=== PATIENT | male | born 1955 | race Caucasian/White ===

== ENCOUNTER 2017-04-11 17:27 | Emergency (ER) | payer BC ==
[~2017-04-11] VITALS: Ht 180.3 cm; Wt 101.4 kg
[2017-04-11 17:43] VITALS: TEMP 98.7
[2017-04-11 18:32] LABS: PH 5 (5-8); SQUAMOUS EPITHELIAL None Seen /hpf; URINE APPEARANCE Clear; URINE BACTERIA None Seen /hpf; URINE BILIRUBIN Negative (NEGATIVE); URINE BLOOD 1+ (NEGATIVE); URINE COLOR Yellow; URINE GLUCOSE Negative (NEGATIVE); URINE KETONE Trace (NEGATIVE); URINE RBC 0-2 /hpf; URINE UROBILINOGEN Negative (NEGATIVE); URINE WBC 0-2 /hpf
[2017-04-11 20:40] VITALS: BP 135/70; PULSE 91
[2017-04-11] MEDS ORDERED: SYNTHROID0.05 MG/TA PO (20:40)
== END 2017-04-11 20:35 | disposition home or self-care (01) ==
LOC: COL.ER 17:27
PROVIDERS: Family Medicine
DX: K59.00 Constipation, unspecified (principal); K64.9 Unspecified hemorrhoids

== ENCOUNTER 2019-11-25 09:08 | Inpatient (IN) | payer BC ==
[2019-11-25] VITALS (429 sets, daily range): BP systolic 109–142; BP diastolic 77–97; PULSE 71–84; TEMP 97.6–98.2; O2SAT 91–99
[~2019-11-25] VITALS: Ht 180.3 cm; Wt 97.5 kg
[~2019-11-25 09:08] MED LIST: SYNTHROID0.05 MG/TA PO
[2019-11-25] MEDS ORDERED: NEXIUM 24HR20 M1 PO (09:13)
[2019-11-25 09:34] LABS: BASO # 0.1 (0.0-0.2); EOS # 0.2 (0.0-0.7); EOS % 2.9 % (0-4.0); GRAN # 3.2 (1.4-6.5); GRAN % 61.4 % (42.2-75.2); HEMATOCRIT 48.2 % (42.0-52.0); INR 1.2 (0.8-3.0); LYMPH # 1.5 (1.2-3.4); LYMPH % 28.4 % (20.0-51.0); MEAN CELL VOLUME 87 fl (80.0-100.0); MEAN CORPUSCULAR HEMOGLOBIN 29 pg (27.0-31.0); MEAN CORPUSCULAR HGB CONC 33 g/dl (33.0-37.0); MEAN PLATELET VOLUME 9.4 fl (7.4-10.4); MONO # 0.3 (0.1-0.6); MONO % 5.9 % (1.7-9.3); PLATELET COUNT 169 K/mm3 (130-400); PROTHROMBIN TIME 13.1 SECONDS (9.7-12.8); RED BLOOD COUNT 5.53 M/mm3 (4.20-5.60)
[2019-11-25 09:36] LABS: ALBUMIN 4.1 gm/dL (3.5-5.0); BILIRUBIN,TOTAL 1.6 mg/dL (0.0-1.0); CALCIUM 9.2 mg/dL (8.4-10.2); CREATININE, serum 1.08 (0.66-1.25); PARTIAL THROMBOPLASTIN TIME 30.5 SECONDS (26.0-37.0); POTASSIUM 4.5 mmol/L (3.4-5.0); TOTAL PROTEIN 7.4 gm/dL (6.4-8.2)
[2019-11-25 09:52] LABS: TROPONIN-I 0.069 ng/mL (0.000-0.035)
--- NOTE | 2019-11-25 11:39 | NUR ---
SEE MERGE DOCUMENTATION FOR MEDICATION ADMINISTRATION TIMES AND INTRA/POST PROCEDURE SEDATION ASSESSMENTS.
--- NOTE | 2019-11-25 11:54 | NUR ---
SEE MERGE FOR MEDICATION ADMINISTRATION TIMES AND INTRA AND POST SEDATION ASSESSMENTS.
--- NOTE | 2019-11-25 12:55 | NUR ---
Received to IMCU room 15 from manager cath lab, serial vs initiated. Poell notified of pt arrival.
--- NOTE | 2019-11-25 13:51 | NUR ---
Results of D-Dimer communicated to Mika. Orders for unitlateral LV US ordered. Will obtain CT of chest with PE protocol.
--- NOTE | 2019-11-25 14:20 | NUR ---
Echo and LV study in progress.
--- NOTE | 2019-11-25 19:15 | NUR ---
REPORT RECEIVED AT BEDSIDE FROM STU RIVERA. PT ON HEPARIN DRIP AT 1700 UNITS/HR OR 17 ML. PT DENIES ANY PAIN OR SOB AT THIS TIME. ALERT AND ORIENTED X 4. VSS. WILL CONTINUE TO MONITOR.
[2019-11-26] VITALS (512 sets, daily range): BP systolic 96–127; BP diastolic 63–91; PULSE 56–65; TEMP 97–98.1; O2SAT 89–98
[2019-11-26 05:47] LABS: BASO # 0.1 (0.0-0.2); BASO % 0.9 % (0.0-2.0); EOS # 0.2 (0.0-0.7); EOS % 2.3 % (0-4.0); GRAN # 4.2 (1.4-6.5); HEMATOCRIT 45.8 % (42.0-52.0); HEMOGLOBIN 15.3 g/dl (13.5-18.0); LYMPH # 1.8 (1.2-3.4); LYMPH % 26.8 % (20.0-51.0); MEAN CELL VOLUME 86 fl (80.0-100.0); MEAN CORPUSCULAR HEMOGLOBIN 29 pg (27.0-31.0); MEAN CORPUSCULAR HGB CONC 33 g/dl (33.0-37.0); MEAN PLATELET VOLUME 9.4 fl (7.4-10.4); MONO # 0.5 (0.1-0.6); MONO % 7.6 % (1.7-9.3); PLATELET COUNT 202 K/mm3 (130-400); RED BLOOD COUNT 5.35 M/mm3 (4.20-5.60); REDCELL DISTRIBUTION WIDTH-CV 13.1 % (11.5-14.5)
[2019-11-26 06:00] LABS: ALBUMIN 3.4 gm/dL (3.5-5.0); BILIRUBIN,TOTAL 1.8 mg/dL (0.0-1.0); CALCIUM 8.7 mg/dL (8.4-10.2); CHOLESTEROL RISK RATIO 4.1; CREATININE, serum 0.91 (0.66-1.25); TOTAL PROTEIN 6.6 gm/dL (6.4-8.2)
--- NOTE | 2019-11-26 06:19 | NUR ---
CRITICAL LAB OF HEP XA AT 0.99, HEPARIN DRIP STOPPED AND WILL RESTART AT 13 ML/HR OR 1300 UNITS/HR PER PROTOCOL. WILL RELAY THIS TO DAY ONCOMING DAY SHIFT NURSE.
[2019-11-26 06:28] LABS: TSH w REFLEX 3.64 uIU/mL (0.465-4.680)
--- NOTE | 2019-11-26 09:58 | NUR ---
The patient is on COVID precautions and pending results. WENDY attempted to contact the patient's room phone to discuss discharge plan. The patient did not answer. WENDY then contacted the patient's , Hai (ph#[phone]), to complete intake. 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 Ibis reports that the patient is independent with ADLs and does not have any DME. The patient's PCP is Dr. Rivas Palacio and he receives his medications at [facility]. Ibis reports no difficulties obtaining his meds. The patient does not have advanced directives completed. Ibis reports that she has no concerns with the patient returning back home upon discharge. The patient is currently requiring 2 liters of oxygen. SW to continue to monitor.
[2019-11-27 00:43] VITALS: BP 115/75; PULSE 57; TEMP 98.2
[2019-11-27 04:00] VITALS: BP 129/81; PULSE 59; TEMP 98.7
--- NOTE | 2019-11-27 07:00 | NUR ---
REPORT RCVD. PT UNDERSTANDS PLAN FOR DISCHARGE TODAY. WILL CONTINUE TO MONITOR. ASSESSMENT COMPLETE. NO FURTHER CONCERNS.
[2019-11-27 07:05] LABS: HEMATOCRIT 43.9 % (42.0-52.0); HEMOGLOBIN 14.8 g/dl (13.5-18.0); MEAN CELL VOLUME 86 fl (80.0-100.0); MEAN CORPUSCULAR HEMOGLOBIN 29 pg (27.0-31.0); MEAN CORPUSCULAR HGB CONC 34 g/dl (33.0-37.0); MEAN PLATELET VOLUME 9.6 fl (7.4-10.4); PLATELET COUNT 215 K/mm3 (130-400); RED BLOOD COUNT 5.13 M/mm3 (4.20-5.60); REDCELL DISTRIBUTION WIDTH-CV 12.9 % (11.5-14.5)
[2019-11-27 08:15] VITALS: BP 139/81; PULSE 71; TEMP 98.1
--- NOTE | 2019-11-27 10:44 | NUR ---
Hand Loom Weaver attended clinical rounds with the team. Patient to discharge home today. Patient does not require home oxygen upon discharge. No additional needs at this time.
--- NOTE | 2019-11-27 10:57 | NUR ---
First visit from the senior financial reporting accountant. No needs right now.
[2019-11-27 11:14] VITALS: BP 126/83; PULSE 59; TEMP 97.7
[2019-11-27] MEDS ORDERED: XARELTO STARTER20 MG PO (13:03)
[2019-11-27] MEDS ORDERED: ASPIRIN E.C. 8181 MG PO (13:03)
--- NOTE | 2019-11-27 13:55 | NUR ---
PT DISCHARGED. NO CONCERNS.
== END 2019-11-27 13:55 | disposition home or self-care (01) | DRG 175 ==
LOC: COL.ER 09:08 → IMCU 10:46 → COL.ER 11:25 → PEDS 11-26 19:17 → MEDICAL 11-27 05:23
PROVIDERS: Family Medicine; Physician Assistant; ADMIT Internal Medicine
PROC: 4A023N6 Measurement of Cardiac Sampling and Pressure, Right Heart, Percutaneous Approach (ICD-10-PCS; principal; 2019-11-25)
PROC: B2111ZZ Fluoroscopy of Multiple Coronary Arteries using Low Osmolar Contrast (ICD-10-PCS; 2019-11-25)
PROC: B2151ZZ Fluoroscopy of Left Heart using Low Osmolar Contrast (ICD-10-PCS; 2019-11-25)
DX: I26.92 Saddle embolus of pulmonary artery without acute cor pulmonale (principal); I21.A1 Myocardial infarction type 2; K21.9 Gastro-esophageal reflux disease without esophagitis; E03.9 Hypothyroidism, unspecified; R73.9 Hyperglycemia, unspecified; Z87.01 Personal history of pneumonia (recurrent); Z98.890 Other specified postprocedural states
CPT/HCPCS: 99223-AI; 99232-AI; 99239; J1644; J2250; J3010; J7030; Q9967

== ENCOUNTER 2020-07-14 19:03 | Emergency (ER) | payer BC ==
[~2020-07-14] VITALS: Ht 180.3 cm; Wt 96.8 kg
[~2020-07-14 19:03] MED LIST changes: +ASPIRIN E.C. 8181 MG PO; +NEXIUM 24HR20 M1 PO; +XARELTO STARTER20 MG PO
[2020-07-14 19:26] VITALS: TEMP 99
[2020-07-14 20:18] LABS: BASO # 0.1 (0.0-0.2); BASO % 1.4 % (0.0-2.0); EOS # 0.1 (0.0-0.7); EOS % 3.2 % (0-4.0); GRAN # 2.4 (1.4-6.5); GRAN % 54.9 % (42.2-75.2); HEMATOCRIT 49.4 % (42.0-52.0); HEMOGLOBIN 16.5 g/dl (13.5-18.0); LYMPH # 1.4 (1.2-3.4); LYMPH % 31.7 % (20.0-51.0); MEAN CELL VOLUME 87 fl (80.0-100.0); MEAN CORPUSCULAR HEMOGLOBIN 29 pg (27.0-31.0); MEAN CORPUSCULAR HGB CONC 33 g/dl (33.0-37.0); MEAN PLATELET VOLUME 9.1 fl (7.4-10.4); MONO # 0.4 (0.1-0.6); MONO % 8.6 % (1.7-9.3); PLATELET COUNT 216 K/mm3 (130-400); RED BLOOD COUNT 5.66 M/mm3 (4.20-5.60); REDCELL DISTRIBUTION WIDTH-CV 13.2 % (11.5-14.5)
[2020-07-14 20:26] LABS: ALANINE AMINOTRANSFERASE 51 U/L (4-49); ALBUMIN 4.1 gm/dL (3.5-5.0); ALKALINE PHOSPHATASE 78 U/L (50-136); ANION GAP 7 mmol/L (7-16); AST,SGOT 42 U/L (15-37); BILIRUBIN,TOTAL 1.3 mg/dL (0.0-1.0); BLOOD UREA NITROGEN 15 mg/dL (9-20); CALCIUM 8.9 mg/dL (8.4-10.2); CARBON DIOXIDE 28 mmol/L (22-30); CHLORIDE 103 mmol/L (98-107); CREATININE, serum 0.99 (0.66-1.25); GLUCOSE 108 mg/dL (74-106); SODIUM 137 mmol/L (137-145); TOTAL PROTEIN 7.3 gm/dL (6.4-8.2)
[2020-07-14 20:39] LABS: TROPONIN-I < 0.012 ng/mL (0.000-0.035)
[2020-07-14 22:29] VITALS: BP 132/70; PULSE 77
== END 2020-07-14 22:29 | disposition home or self-care (01) ==
LOC: COL.ER 19:03
PROVIDERS: Emergency Medicine
DX: R07.89 Other chest pain (principal); Z20.822 Contact with and (suspected) exposure to COVID-19; Z79.01 Long term (current) use of anticoagulants; Z79.82 Long term (current) use of aspirin

== ENCOUNTER → 2021-09-08 | Outpatient (CLI) | payer BC | LOC: COL.RAD 11:16 | DX: R22.1 Localized swelling, mass and lump, neck (principal) ==

== ENCOUNTER → 2021-09-14 | Outpatient (CLI) | payer BC | LOC: COL.RAD 12:54 | DX: R22.1 Localized swelling, mass and lump, neck (principal) | CPT/HCPCS: Q9967 ==

== ENCOUNTER 2023-11-17 10:13 | Emergency (ER) | payer BC ==
[~2023-11-17] VITALS: Ht 180.3 cm; Wt 106.4 kg
[2023-11-17 10:15] VITALS: TEMP 97.7
[2023-11-17 10:34] LABS: BASO # 0.1 K/mm3 (0.0-0.2); EOS # 0.7 K/mm3 (0.0-0.7); EOS % 9.5 % (0.0-4.0); GRAN # 4.5 K/mm3 (1.4-6.5); GRAN % 62.6 % (42.2-75.2); HEMATOCRIT 49.8 % (42.0-52.0); HEMOGLOBIN 16.7 g/dl (13.5-18.0); LYMPH # 1.5 K/mm3 (1.2-3.4); LYMPH % 20.3 % (20.0-51.0); MEAN CELL VOLUME 91 fl (80.0-100.0); MEAN CORPUSCULAR HEMOGLOBIN 31 pg (27-31); MEAN CORPUSCULAR HGB CONC 34 g/dl (33.0-37.0); MEAN PLATELET VOLUME 9.1 fl (7.4-10.4); MONO # 0.4 K/mm3 (0.1-0.6); PLATELET COUNT 220 K/mm3 (130-400); RED BLOOD COUNT 5.47 M/mm3 (4.20-5.60); REDCELL DISTRIBUTION WIDTH-CV 13.4 % (11.5-14.5)
[2023-11-17 10:51] LABS: ALANINE AMINOTRANSFERASE 26 U/L (0-55); ALBUMIN 3.4 g/dL (3.4-4.8); ALKALINE PHOSPHATASE 71 U/L (40-150); ANION GAP 13 mmol/L (7-16); AST,SGOT 28 U/L (5-34); BILIRUBIN,TOTAL 1.5 mg/dL (0.2-1.2); BLOOD UREA NITROGEN 12 mg/dL (8-26); CALCIUM 8.9 mg/dL (8.4-10.2); CHLORIDE 109 mEq/L (98-107); CREATININE, serum 1.13 mg/dL (0.72-1.25); GLUCOSE 114 mg/dL (70-99); LIPASE 26 U/L (8-78); POTASSIUM 4.2 mEq/L (3.5-4.5); SODIUM 140 mEq/L (136-145)
[2023-11-17 11:14] LABS: TROPONIN-I < 0.010 ng/mL (0.00-0.033)
[2023-11-17 11:43] VITALS: BP 126/93; PULSE 76
== END 2023-11-17 11:51 | disposition home or self-care (01) ==
LOC: COL.ER 10:13
PROVIDERS: Emergency Medicine
DX: R07.9 Chest pain, unspecified (principal); Z86.711 Personal history of pulmonary embolism; Z79.01 Long term (current) use of anticoagulants